=== PATIENT | male | born 1940 | race Caucasian/White ===

== ENCOUNTER 2017-01-11 21:46 | Emergency (ER) | payer MEDICARE, OTHER ==
[2017-01-12 02:33] LABS: ABSOLUTE BASOPHILS # (AUTO) 0.1 10^3/uL (0.0-0.2); ABSOLUTE EOSINOPHILS # (AUTO) 0.5 10^3/uL (0.0-0.6); ABSOLUTE LYMPHOCYTES (AUTO) 1.8 10^3/uL (0.5-4.7); ABSOLUTE MONOCYTES (AUTO) 0.8 10^3/uL (0.1-1.4); ABSOLUTE NEUT (AUTO) 5.9 10^3/uL (1.7-8.2); BASOPHILS % (AUTO) 0.6 % (0-2); EOSINOPHILS % (AUTO) 6.1 % (0-6); HEMATOCRIT 37.9 % (37.9-51.0); HEMOGLOBIN 12.9 g/dL (13.5-17.0); HGB HCT DIFFERENCE 0.8; LYMPHOCYTES % (AUTO) 19.8 % (13-45); MEAN CORPUSCULAR VOLUME 91 fl (80-97); MONOCYTES % (AUTO) 8.6 % (3-13); RED BLOOD COUNT 4.17 10^6/uL (4.35-5.55); RED CELL DISTRIBUTION WIDTH 12.8 % (11.5-14.0); SEGMENTED NEUTROPHILS % (AUTO) 64.9 % (42-78)
[2017-01-12] MEDS ORDERED: DOCUSATE SODIUM 100 MG CAPSULE PO ONE (03:10)
--- NOTE | 2017-01-12 03:10 | ER Document Report ---
ED General - General Chief Complaint: Rectal Bleeding Stated Complaint: RECTAL BLEEDING Time Seen by Provider: 01/12/17 01:27 Notes: Patient is a 76-year-old male presents with rectal bleeding. Patient reports that he had one bloody bowel movement at approximately midnight on 01/11 has had 2 normal bowel movement since that time. However he states when he wiped tonight without having a bowel movement he noticed a small amount of blood on the tissue paper which prompted him come to the emergency department. He has a history of hemorrhoids in the past but has never had rectal bleeding outside of hemorrhoidal bleeds. He does not use any form of angulation. He denies any pain to the area. Nothing seems to improve or worsen his symptoms. He has not seen his primary care doctor regarding today's concerns. Denies any lightheadedness, syncope, or abdominal pain. TRAVEL OUTSIDE OF THE [place] IN LAST 30 DAYS: No - Related Data Allergies/Adverse Reactions: ciprofloxacin [From Cipro] Allergy (Verified 01/11/17 21:59) colora vacc Allergy (Uncoded 01/11/17 21:59) Past Medical History - General Information source: Patient - Social History Smoking Status: Never Smoker Frequency of alcohol use: None Drug Abuse: None Lives with: Alone Family History: Reviewed & Not Pertinent Patient has suicidal ideation: No Patient has homicidal ideation: No Renal/ Medical History: Denies: Hx Peritoneal Dialysis Review of Systems - Review of Systems Notes: Constitutional: Negative for fever. HENT: Negative for sore throat. Eyes: Negative for visual changes. Cardiovascular: Negative for chest pain. Respiratory: Negative for shortness of breath. Gastrointestinal: Negative for abdominal pain, vomiting or diarrhea. Positive for rectal bleeding Genitourinary: Negative for dysuria. Musculoskeletal: Negative for back pain. Skin: Negative for rash. Neurological: Negative for headaches, weakness or numbness. 10 point ROS negative except as marked above and in HPI. Physical Exam - Vital signs Vitals: Temp Pulse Resp BP Pulse Ox 97.4 F 65 18 149/75 H 99 01/11/17 21:59 01/11/17 21:59 01/11/17 21:59 01/11/17 21:59 01/11/17 21:59 Interpretation: Hypertensive Notes: PHYSICAL EXAMINATION: GENERAL: Well-appearing, well-nourished and in no acute distress. HEAD: Atraumatic, normocephalic. EYES: Pupils equal round and reactive to light, extraocular movements intact, sclera anicteric, conjunctiva are normal. ENT: nares patent, oropharynx clear without exudates. Moist mucous membranes. NECK: Normal range of motion, supple without lymphadenopathy LUNGS: Breath sounds clear to auscultation bilaterally and equal. No wheezes rales or rhonchi. HEART: Regular rate and rhythm without murmurs ABDOMEN: Soft, nontender, normoactive bowel sounds. No guarding, no rebound. No masses appreciated. Rectal: Non-thrombosed external hemorrhoid in the 4 o'clock position on the anus. There is a small amount of active bleeding from hemorrhoid. EXTREMITIES: Normal range of motion, no pitting or edema. No cyanosis. NEUROLOGICAL: No focal neurological deficits. Moves all extremities spontaneously and on command. PSYCH: Normal mood, normal affect. SKIN: Warm, Dry, normal turgor, no rashes or lesions noted. Course - Re-evaluation Re-evalutation: 01/12/17 03:09 Presentation is most consistent with uncomplicated external hemorrhoids. No evidence of anemia on CBC. Patient's abdominal exam is otherwise benign. I do not suspect a more significant lower GI bleed or upper GI bleed based on history , vitals, normal hemoglobin, and patient's overall well appearance. The patient will be discharged home on conservative treatment recommendations as well as recommendations for close outpatient follow-up. Return precautions have been reviewed. - Vital Signs Vital signs: Temp Pulse Resp BP Pulse Ox 97.4 F 65 18 149/75 H 99 01/11/17 21:59 01/11/17 21:59 01/11/17 21:59 01/11/17 21:59 01/11/17 21:59 - Laboratory Result Diagrams: 01/12/17 02:18 Laboratory results interpreted by me: 01/12/17 02:18 RBC 4.17 L Hgb 12.9 L Eosinophils % 6.1 H Discharge - Discharge Clinical Impression: External hemorrhoid Condition: Good Disposition: HOME, SELF-CARE Additional Instructions: You were seen today for hemorrhoids. The best treatment is to avoid straining while having bowel moments, avoiding heavy lifting, or any other activity that causes you to bear down forcefully. You need to make sure that your stools are soft and should start taking Docusate 200mg in the morning and at night until your stools are very soft and you can have a bowel movement without any straining. You can also soak in warm water, apply topical hemorrhoid cream that can be purchased at the store, and take tylenol or ibuprofen per box instructions as needed for pain. Please follow-up with your primary doctor. Return if you begin to have persistent bleeding, worsening pain, abdominal pain , fever >101, or any other symptoms that are concerning to you. Referrals: KOKO GIBBONS MD [Primary Care Provider] - Follow up as needed
[2017-01-12 03:35] VITALS: BP 136/72
== END 2017-01-12 03:35 | disposition home or self-care (01) ==
LOC: ER 21:46
DX: K64.4 Residual hemorrhoidal skin tags (principal); Z88.1 Allergy status to other antibiotic agents; Z88.7 Allergy status to serum and vaccine
CPT/HCPCS: 99283; 36415; 85025; A9270

== ENCOUNTER → 2018-08-04 | Outpatient (CLI) | payer MEDICARE, OTHER ==
[2018-08-04 11:36] LABS: HEMOGLOBIN 12.1 g/dL (13.5-17.0); MEAN CORPUSCULAR HEMOGLOBIN 30.3 pg (27.0-33.4); MEAN CORPUSCULAR HGB CONC 33.6 g/dL (32.0-36.0); MEAN CORPUSCULAR VOLUME 90 fl (80-97); PLATELET COUNT 152 10^3/uL (150-450); RED BLOOD COUNT 3.98 10^6/uL (4.35-5.55); RED CELL DISTRIBUTION WIDTH 13.5 % (11.5-14.0); WHITE BLOOD COUNT 6.6 10^3/uL (4.0-10.5)
[2018-08-04 12:26] LABS: ALANINE AMINOTRANSFERASE 26 U/L (21-72); ALBUMIN 3.9 g/dL (3.5-5.0); ALKALINE PHOSPHATASE 74 U/L (38-126); ANION GAP 10 (5-19); ASPARTATE AMINO TRANSFERASE 26 U/L (17-59); BILIRUBIN,DIRECT 0.2 mg/dL (0.0-0.4); BILIRUBIN,TOTAL 0.6 mg/dL (0.2-1.3); BLOOD UREA NITROGEN 29 mg/dL (7-20); CALCIUM 9.5 mg/dL (8.4-10.2); CARBON DIOXIDE 28 mmol/L (22-30); CHLORIDE 96 mmol/L (98-107); GLUCOSE 93 mg/dL (75-110); POTASSIUM 4.6 mmol/L (3.6-5.0); SODIUM 134.4 mmol/L (137-145); TOTAL PROTEIN 6.5 g/dL (6.3-8.2)
== END ==
LOC: OD 10:33
PROVIDERS: ATTEND Internal Medicine Nephrology
DX: I12.9 Hypertensive chronic kidney disease with stage 1 through stage 4 chronic kidney disease, or unspecified chronic kidney disease (principal); N18.3 Chronic kidney disease, stage 3 (moderate); R80.9 Proteinuria, unspecified
CPT/HCPCS: 36415; 80053; 83735; 85027

== ENCOUNTER → 2018-12-08 | Outpatient (CLI) | payer MEDICARE, OTHER ==
--- NOTE | 2018-12-08 12:17 | RADIOLOGY REPORT (SQ) ---
EXAM DESCRIPTION: CT ABD/PELVIS NO ORAL OR IV COMPLETED DATE/TIME: 12/08/2018 11:26 am REASON FOR STUDY: CALCULUS OF KIDNEY (N20.0) N20.0 CALCULUS OF KIDNEY COMPARISON: CT chest 08/20/2015 MRI abdomen 05/30/2015, 02/28/2014 TECHNIQUE: CT scan of the abdomen and pelvis performed without intravenous or oral contrast. Images reviewed with lung, soft tissue, and bone windows. Reconstructed coronal and sagittal MPR images revi ewed. All images stored on PACS. All CT scanners at this facility use dose modulation, iterative reconstruction, and/or weight based d osing when appropriate to reduce radiation dose to as low as reasonably achievable (ALARA). [facility]: Dose Right [facility]: CareDose [facility]: Dose Right [facility]: Teradose 4D [facility]: [facility] [employer] RADIATION DOSE: CT Rad equipment meets quality standard of care and radiation dose reduction techniq ues were employed. CTDIvol: 4.3 mGy. DLP: 203 mGy-cm.mGy. LIMITATIONS: None. FINDINGS: LOWER CHEST: No significant findings. No nodules or infiltrates. NON-CONTRASTED LIVER, SPLEEN, ADRENALS: Evaluation limited by lack of IV contrast. No identified sign ificant masses. PANCREAS: No masses. No peripancreatic inflammatory changes. GALLBLADDER: No identified stones by CT criteria. No inflammatory changes to suggest cholecystitis. RIGHT KIDNEY AND URETER: No suspicious masses. Assessment limited by lack of IV contrast. No signif icant calcifications. There is moderate right hydronephrosis and upper hydroureter, similar compare d to prior MRI exam 05/30/2015. Patient has a right lower quadrant urinary conduit. LEFT KIDNEY AND URETER: Post left nephro ureterectomy AORTA AND RETROPERITONEUM: No aneurysm. No retroperitoneal masses or adenopathy. BOWEL AND PERITONEAL CAVITY: No obvious masses or inflammatory changes. No free fluid. Few sigmoid d iverticuli without CT signs of acute diverticulitis APPENDIX: Normal on coronal image 13 PELVIS, BLADDER, AND ABDOMINAL WALL:Post cysto prostatectomy. No pelvic masses or adenopathy. Rectu m unremarkable. No free pelvic fluid BONES: No significant findings. OTHER: No other significant finding. IMPRESSION: Moderate right hydronephrosis and hydroureter, similar compared to MRI abdomen 05/30/2015 . No right-sided urinary calculi. Patient has a right-sided urinary conduit post cystoprostatectomy and left nephroureterectomy. No st omal hernia. COMMENT: Quality ID # [id number]: Final reports with documentation of one or more dose reduction techniques (e.g., Automated exposure control, adjustment of the mA and/or kV according to patient size, use of iterative reconstruction technique) TECHNICAL DOCUMENTATION: JOB ID: [id number] [employer]- All Rights Reserved Reading location - IP/workstation name: [email or web address]
== END ==
LOC: RAD 11:05
DX: N20.0 Calculus of kidney (principal); N13.30 Unspecified hydronephrosis
CPT/HCPCS: 74176

== ENCOUNTER → 2019-03-20 | Outpatient (CLI) | payer MEDICARE, OTHER ==
--- NOTE | 2019-03-20 15:29 | RADIOLOGY REPORT (SQ) ---
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 Images reviewed with lung, soft tissue, and bone windows. Reconstructed coronal and sagittal MPR images revi ewed. All images stored on PACS. All CT scanners at this facility use dose modulation, iterative reconstruction, and/or weight based d osing when appropriate to reduce radiation dose to as low as reasonably achievable (ALARA). [facility]: Dose Right [facility]: CareDose [facility]: Dose Right [facility]: Teradose 4D [facility]: Smart [employer] RADIATION DOSE: CT Rad equipment meets quality standard of care and radiation dose reduction techniq ues were employed. CTDIvol: 4.2 mGy. DLP: 203 mGy-cm.mGy. LIMITATIONS: None. FINDINGS: LOWER CHEST: No significant findings. No nodules or infiltrates. NON-CONTRASTED LIVER, SPLEEN, ADRENALS: Evaluation limited by lack of IV contrast. No identified sign ificant masses. PANCREAS: No masses. No peripancreatic inflammatory changes. GALLBLADDER: No identified stones by CT criteria. No inflammatory changes to suggest cholecystitis. RIGHT KIDNEY AND URETER: No suspicious masses. Assessment limited by lack of IV contrast. No signif icant calcifications. No hydronephrosis or hydroureter. LEFT KIDNEY AND URETER: Left nephrectomy. AORTA AND RETROPERITONEUM: No aneurysm. No retroperitoneal masses or adenopathy. BOWEL AND PERITONEAL CAVITY: Sigmoid diverticulosis. No obvious bowel mass. APPENDIX: Not identified. PELVIS, BLADDER, AND ABDOMINAL WALL:Prior cystectomy. The patient has had a urinary diversion proced ure with an ostomy in the right lower quadrant. BONES: Scoliosis, spondylosis, and degenerative disc changes in the lumbar spine. OTHER: No other significant finding. IMPRESSION: Prior left nephrectomy and cystectomy with urinary diversion procedure. The right kidne y and ureter are normal. COMMENT: Quality ID # [id number]: Final reports with documentation of one or more dose reduction techniques (e.g., Automated exposure control, adjustment of the mA and/or kV according to patient size, use of iterative reconstruction technique) TECHNICAL DOCUMENTATION: JOB ID: [id number] [employer]- All Rights Reserved Reading location - IP/workstation name: [email or web address]
== END ==
LOC: RAD 12:59
PROVIDERS: ATTEND Urology
DX: C65.2 Malignant neoplasm of left renal pelvis (principal); N13.30 Unspecified hydronephrosis; Z90.5 Acquired absence of kidney
CPT/HCPCS: 74176

== ENCOUNTER → 2019-11-13 | Outpatient (CLI) | payer MEDICARE, OTHER ==
--- NOTE | 2019-11-13 11:53 | RADIOLOGY REPORT (SQ) ---
EXAM DESCRIPTION: CT ABD/PELVIS WITH IV ORAL IMAGES COMPLETED DATE/TIME: 11/13/2019 9:59 am REASON FOR STUDY: R63.4 ABNORMAL WEIGHT LOSS R63.4 ABNORMAL WEIGHT LOSS COMPARISON: 03/20/2019 TECHNIQUE: CT scan of the abdomen and pelvis performed using helical scanning technique with dynamic intravenous contrast injection. Patient was given oral contrast. Images reviewed with lung, soft ti ssue, and bone windows. Reconstructed coronal and sagittal MPR images reviewed. Delayed images for ev aluation of the urinary system also acquired. All images stored on PACS. All CT scanners at this facility use dose modulation, iterative reconstruction, and/or weight based d osing when appropriate to reduce radiation dose to as low as reasonably achievable (ALARA). [facility]: Dose Right [facility]: CareDose [facility]: Dose Right [facility]: Teradose 4D [facility]: [employer] CONTRAST TYPE AND DOSE: contrast/concentration: Isovue 300.00 mmol/ml; Total Contrast Delivered: 80. 0 ml; Total Saline Delivered: 55.0 ml RENAL FUNCTION: CREATININE 1.3 RADIATION DOSE: CT Rad equipment meets quality standard of care and radiation dose reduction techniq ues were employed. CTDIvol: 3.8 - 3.8 mGy. DLP: 349 mGy-cm.. LIMITATIONS: None. FINDINGS: LOWER CHEST: No acute findings. Stable right basilar 4 Mm nodule. LIVER: Normal size. No masses. No dilated ducts. SPLEEN: Normal size. No focal lesions. PANCREAS: No masses. No significant calcifications. No adjacent inflammation or peripancreatic fluid collections. Pancreatic duct not dilated. GALLBLADDER: Nonvisualized. ADRENAL GLANDS: No significant masses or asymmetry. RIGHT KIDNEY AND URETER: No solid masses. No significant calcifications. No hydronephrosis or hyd roureter. LEFT KIDNEY AND URETER: Surgically absent. No definitive new soft tissue mass within the resection b ed. AORTA AND VESSELS: Aortoiliac atherosclerosis without aneurysm. Patent celiac, SMA and right renal a rtery with scattered plaque. RETROPERITONEUM: No discrete adenopathy. No retroperitoneal hemorrhage or mass. BOWEL AND PERITONEAL CAVITY: No evidence of intestinal obstruction. Scattered colonic diverticula. Postsurgical changes from right lower quadrant ileal conduit formation. APPENDIX: Not identified. PELVIS: Postsurgical changes from the cystectomy and right lower quadrant ileal conduit. No pelvic f ree fluid. No discrete mass or adenopathy. ABDOMINAL WALL: Right lower quadrant ileal conduit. BONES: No acute bony abnormality. No discrete lytic or blastic osseous lesions. Lower lumbar spondy losis and facet arthropathy. OTHER: No other significant finding. IMPRESSION: 1. Postsurgical changes from left nephrectomy and cystectomy with right lower quadrant ileal conduit. 2. No definitive evidence of residual or recurrent disease within the abdomen or pelvis. 3. No evidence of acute intra-abdominal/pelvic process. TECHNICAL DOCUMENTATION: JOB ID: [id number] Quality ID # [id number]: Final reports with documentation of one or more dose reduction techniques (e.g., Au tomated exposure control, adjustment of the mA and/or kV according to patient size, use of iterative reconstruction technique) 2010 [employer]- All Rights Reserved Reading location - IP/workstation name: [email or web address]
== END ==
LOC: RAD 09:21
PROVIDERS: ATTEND Family Medicine
DX: R63.4 Abnormal weight loss (principal)
CPT/HCPCS: 74177; 82565